=== PATIENT | male | born 1990 | race Caucasian/White ===

== ENCOUNTER 2018-07-21 16:43 | Emergency (ER) | payer SELFPAY ==
[~2018-07-21] VITALS: Ht 177.8 cm; Wt 75.0 kg
[2018-07-21] MEDS ORDERED: SODIUM CHLORIDE 0.9% 1,000 ML IV ONE ×2 (17:44→18:22)
[2018-07-21 18:18] LABS: HEMATOCRIT. 43.7 % (42.0-52.0); HEMOGLOBIN. 14.9 g/dL (14.0-18.0); MEAN CORPUSCULAR HEMOGLOBIN 30.8 pg (28.0-32.0); MEAN CORPUSCULAR VOLUME 90.3 fL (80.0-94.0); MEAN PLATELET VOLUME 7.5 fl (7.4-10.4); PLATELET 245 x1000/uL (130-400); RED BLOOD CELL COUNT 4.84 mill/uL (4.7-6.1); RED CELL DISTRIBUTION WIDTH 12.6 % (11.6-14.6)
[2018-07-21 18:22] LABS: CHLORIDE 101 mEq/L (98-107)
[2018-07-21 18:29] LABS: ETHANOL BLOOD < 10 mg/dL
[2018-07-21] MEDS ORDERED: LORAZEPAM 2MG/ML CPJ IV ONE (18:30)
[2018-07-21 18:37] LABS: PLATELET ESTIMATE NORMAL
[2018-07-21 20:33] LABS: CLARITY URINE CLEAR (CLEAR); COLOR URINE YELLOW (YELLOW); KETONES URINE 1+ (NEGATIVE); LEUKOCYTE ESTERASE URINE TRACE (NEGATIVE); NITRITE URINE NEGATIVE (NEGATIVE); OCCULT BLOOD URINE NEGATIVE (NEGATIVE); PROTEIN URINE NEGATIVE (NEGATIVE); SPECIFIC GRAVITY URINE 1.015 (1.005-1.030)
[2018-07-21 20:45] LABS: *BARBITURATES SCREEN URINE NEGATIVE (NEGATIVE); *COCAINE SCREEN URINE PRESUMTIVE POSITIVE (NEGATIVE)
[2018-07-21 20:46] LABS: *AMPHETAMINES SCREEN URINE PRESUMTIVE POSITIVE (NEGATIVE); *BENZODIAZEPINES SCREEN URINE NEGATIVE (NEGATIVE); CANNABINOID URINE SCREEN NEGATIVE (NEGATIVE); METHADONE URINE SCREEN NEGATIVE (NEGATIVE); OPIATES URINE SCREEN PRESUMTIVE POSITIVE (NEGATIVE); PHENCYCLIDINE URINE SCREEN NEGATIVE (NEGATIVE)
[2018-07-22 02:08] VITALS: BP 110/75
== END 2018-07-22 02:12 | disposition home or self-care (01) ==
LOC: ER 16:43 → EDBD 16:43 → ER 07-22 02:12
DX: F14.129 Cocaine abuse with intoxication, unspecified (principal); F15.129 Other stimulant abuse with intoxication, unspecified; F11.129 Opioid abuse with intoxication, unspecified; F10.10 Alcohol abuse, uncomplicated; Y90.0 Blood alcohol level of less than 20 mg/100 ml; F30.9 Manic episode, unspecified; Z59.0 Homelessness
CPT/HCPCS: 36415; 70450; 80053; 80305; 80307; 80320; 80329; 81003; 82140; 84443; 85025; 93005; 96361; 96374; 99284; J2060; J7030; Z7610; G0480